=== PATIENT | female | born 1985 | race Caucasian/White ===

== ENCOUNTER 2017-07-02 04:17 | Inpatient (IN) | payer OTHER ==
[~2017-07-02] VITALS: Ht 152.4 cm; Wt 2.7 kg
[~2017-07-02 04:17] MED LIST: SYNTHROID125 MCG
== END 2017-07-04 14:08 | DRG 766 ==
LOC: LDR 04:17 → SURG-SUITE 13:39
PROVIDERS: Specialist
PROC: 0UL70ZZ Occlusion of Bilateral Fallopian Tubes, Open Approach (ICD-10-PCS; 2017-07-02)
PROC: 4A1HXCZ Monitoring of Products of Conception, Cardiac Rate, External Approach (ICD-10-PCS; 2017-07-02)
PROC: 10D00Z1 Extraction of Products of Conception, Low, Open Approach (ICD-10-PCS; principal; 2017-07-02 09:45)
DX: O99.02 Anemia complicating childbirth (principal); O99.284 Endocrine, nutritional and metabolic diseases complicating childbirth; E03.8 Other specified hypothyroidism; Z3A.38 38 weeks gestation of pregnancy; Z37.0 Single live birth; Z30.2 Encounter for sterilization